=== PATIENT | female | born 1965 | race Caucasian/White ===

== ENCOUNTER 2016-04-09 09:58 | Day surgery (SDC) | payer BC ==
[2016-04-08 12:28] LABS: ALBUMIN 3.7 G/DL (3.5-5.0); ALKALINE PHOSPHATASE 110 U/L (45-117); BUN (BLOOD UREA NITROGEN) 8 MG/DL (6-23); CALCIUM, SERUM 8.5 MG/DL (8.5-10.4); CHLORIDE, SERUM 103 MMOL/L (96-112); CO2 (CARBON DIOXIDE) 27 MMOL/L (24-34); CREATININE 0.77 MG/DL (0.55-1.02); GFR AFRICAN AMERICAN 104 ML/MIN (>=60); GFR NON AFRICAN AMERICAN 90 ML/MIN (>=60); GLOBULIN 3.6 G/DL (2.5-4.1); GLUCOSE, SERUM 120 MG/DL (60-99); SGOT(AST) 14 U/L (5-40); SGPT(ALT) 24 U/L (5-65); SODIUM, SERUM 139 MMOL/L (135-148); TOTAL BILIRUBIN 0.4 MG/DL (0-1.2); TOTAL PROTEIN 7.3 G/DL (6.0-8.5)
[2016-04-08 12:30] LABS: POTASSIUM, SERUM 3.9 MMOL/L (3.5-5.3)
--- NOTE | ~2016-04-09 | OP ---
Record Of Operation [facility] [address] [place]. [address] NAME: MARIANA VILLAREAL : 65 STATUS : REG [facility]#: [id number] AGE: 50 ADM/REG DATE : 04/09/16 MR#: [id number] REPORT SERV DATE: 04/09/16 DICTATED BY: DAWSON PRADO DATE: 04/09/16 REPORT STATUS : Draft TRANSCRIBED BY: MODL DATE: 04/09/16 DATE OF PROCEDURE: 04/09/2016 PREOPERATIVE DIAGNOSES: 1. Cholelithiasis with chronic cholecystitis. 2. Hypertension. 3. Chronic pain. POSTOPERATIVE DIAGNOSES: 1. Cholelithiasis with chronic cholecystitis. 2. Hypertension. 3. Chronic pain. PROCEDURE: Laparoscopic cholecystectomy. ANESTHESIA: General. SURGEON: Dawson Prado M.D. MANAGER LATIN: [place]. COMPLICATIONS: None. DRAINS: None. ESTIMATED BLOOD LOSS: 20 mL. FINDINGS: 1. The patient was noted to have a thickened gallbladder wall consistent with chronic cholecystitis with cholelithiasis. 2. The cystic duct was normal size diameter with normal preoperative liver function studies and no evidence of any common bile duct dilatation clinically, therefore no cholangiogram was obtained. OPERATIVE TECHNIQUE: The patient was brought to the operating room and placed on the table in supine position. She had preoperative IV antibiotics. She had sequential hose in place. She voided prior to the procedure. She underwent general endotracheal anesthesia and was prepped and draped in sterile fashion and a time-out was completed. Local anesthesia was instilled to the periumbilical skin. A 15 blade knife was used to make incision through the base of the umbilicus. The skin and fascia were elevated. The Veress needle was inserted and a water drop test safely performed. A 15 mm of pneumoperitoneum was obtained. An 11 mm trocar was inserted through the umbilicus followed by the laparoscope. There was no evidence of Veress or trocar injury. She was then placed in reverse Trendelenburg and rolled to the left. An 11 mm subxiphoid and two 5 mm right upper quadrant trocars were placed under direct visualization. The gallbladder fundus was grasped and elevated over the liver edge. It was noted to be thickened consistent with chronic cholecystitis. The Record Of Operation [facility] [address] [place]. [address] NAME: MARIANA VILLAREAL : 65 STATUS : REG [facility] [place] PAT#: [id number] AGE: 50 ADM/REG DATE : 04/09/16 MR#: [id number] REPORT SERV DATE: 04/09/16 DICTATED BY: DAWSON PRADO DATE: 04/09/16 REPORT STATUS : Draft TRANSCRIBED BY: MODL DATE: 04/09/16 patient then had the infundibulum identified and retracted inferolaterally. The cystic duct gallbladder junction was identified on its lateral aspect and circumferentially dissected with blunt dissection until the cystic duct was seen circumferentially. Dissection more medial revealed the cystic artery and it was also bluntly dissected to its junction with the gallbladder. At this point, the cystic duct and cystic artery were clearly identified and clipped twice proximally and distally and divided between the clips. The gallbladder was removed from the fossa using electrocautery hook and extracted through the umbilicus. The laparoscope and trocar reinserted. Examination of the hepatic fossa noted to be hemostatic. The clips were noted to be intact without encroaching the common bile duct. There was no evidence of any bleeding, biliary spillage, or other visual abnormalities. At this point, all the instruments and trocars removed under direct visualization as the pneumoperitoneum was aspirated. The umbilical fascia was reapproximated using a [id number] Vicryl suture. Skin edges were reapproximated using absorbable subcuticular Monocryl sutures. Dermabond was applied. She was extubated and taken to the recovery room in stable condition. GABRIEL/ERIN Dawson Prado M.D. / [id number] CC: Mendel Foss M.D.
[~2016-04-09 09:58] MED LIST: ADVIL PO; ASAB PO; BEN25 PO; BROVANA15 MCG INH; CALTRA600D PO; DIL4TAB PO; DIOV160 PO; HALF81 PO; LORTAB 5 PO; MEP50 IM; METHOC750B PO; MSCONT15 PO; MULTIPLE VIT PO; MULTIVIT/MIN PO; NAP500 PO; NEUR100 PO; NEUR300 PO; NORCO1 TA1 PO; NORCO1 TA2 PO; NORV5 PO; PERCOCET1 TA4 PO; PR25 PO; PRILO PO; PRIN10 PO; PROMETRIUM PO; PROZAC40 MG PO; PULRESP.5 INH; SPIRIVA INH; SPIRIVA RESPIMAT INH; SUDAFED 24HR1 TAB PO; SYMBICORT 160/41 INH INH; ULTRAM50 PO; XOPENEX HFA INH; XOPENEX INH; ZOFRAN4 PO; ZYRTEC ALLGY10 MG PO
[2016-04-09 10:43] LABS: HEMATOCRIT 36.2 % (36.0-48.0); HEMOGLOBIN 11.9 g/dL (12.0-16.0)
== END 2016-04-09 18:47 | disposition home or self-care (01) ==
LOC: SDC 09:58
PROVIDERS: Surgery
PROC: 0FT44ZZ Resection of Gallbladder, Percutaneous Endoscopic Approach (ICD-10-PCS; principal; 2016-04-09 11:30)
DX: K80.10 Calculus of gallbladder with chronic cholecystitis without obstruction (principal); I10 Essential (primary) hypertension; G89.29 Other chronic pain; K21.9 Gastro-esophageal reflux disease without esophagitis; Z88.2 Allergy status to sulfonamides; Z88.5 Allergy status to narcotic agent; Z91.041 Radiographic dye allergy status; Z88.8 Allergy status to other drugs, medicaments and biological substances; Z79.51 Long term (current) use of inhaled steroids; J45.909 Unspecified asthma, uncomplicated; G57.93 Unspecified mononeuropathy of bilateral lower limbs; Z79.82 Long term (current) use of aspirin; Z79.899 Other long term (current) drug therapy; Z79.891 Long term (current) use of opiate analgesic
CPT/HCPCS: 80053; 84703; 85014; 85018; 88304; 93005; A9270-GY; J0690; J1170; J1885; J2250; J2405; J2710; J3010

== ENCOUNTER 2016-05-14 23:50 | Emergency (ER) | payer BC ==
[2016-05-14 23:33] LABS: BASOPHILS 0.3 %; BASOPHILS ABSOLUTE 0.02 10/3/uL (0.0-0.16); EOSINOPHILS 1.2 %; EOSINOPHILS ABSOLUTE 0.09 10/3/uL (0.0-0.53); HEMATOCRIT 36.4 % (36.0-48.0); HEMOGLOBIN 12.1 g/dL (12.0-16.0); IMMATURE GRANULOCYTES 0.3 %; IMMATURE GRANULOCYTES ABSOLUTE 0.02 10/3/uL (0.0-0.11); LYMPHOCYTES 15.7 %; MEAN CORPUS HGB CONC 33.2 g/dL (32.0-36.0); MEAN CORPUSCULAR VOLUME 90.1 fL (80-100); MEAN PLATELET VOLUME 9.5 fL (9.2-13.0); MONOCYTES 6.4 %; MONOCYTES ABSOLUTE 0.49 10/3/uL (0.21-1.20); NEUTROPHILS 76.1 %; NEUTROPHILS ABSOLUTE 5.81 10/3/uL (2.02-8.40); PLATELET COUNT 321 10/3/uL (150-400); RBC DISTRIBUTION WIDTH 14.6 % (12.0-16.0); RED CELL COUNT 4.04 10/6/uL (4.0-5.6)
[2016-05-14 23:40] LABS: PROTIME (NOT ORD) 13.1 SEC (12.0-14.5)
[2016-05-14 23:41] LABS: ER CBC TAT 0 Hrs 13 Mins; WHITE BLOOD CELLS 7.6 10/3/uL (4.5-10.5)
[2016-05-14 23:50] LABS: BUN (BLOOD UREA NITROGEN) 8 MG/DL (6-23); CHEST PAIN PROFILE TAT 0 Hrs 22 Mins; CHLORIDE, SERUM 105 MMOL/L (96-112); CO2 (CARBON DIOXIDE) 27 MMOL/L (24-34); CREATININE 0.98 MG/DL (0.55-1.02); GFR AFRICAN AMERICAN 78 ML/MIN (>=60); GFR NON AFRICAN AMERICAN 67 ML/MIN (>=60); GLUCOSE, SERUM 104 MG/DL (60-99); POTASSIUM, SERUM 3.8 MMOL/L (3.5-5.3); SODIUM, SERUM 141 MMOL/L (135-148); TROPONIN I <0.02 NG/ML (<0.05)
[2016-05-14 23:54] LABS: MANUAL DIFF NO %
== END 2016-05-15 04:18 | disposition home or self-care (01) ==
LOC: ER 23:50
PROVIDERS: Specialist
DX: J06.9 Acute upper respiratory infection, unspecified (principal); E86.0 Dehydration; I10 Essential (primary) hypertension; Z88.5 Allergy status to narcotic agent; Z88.2 Allergy status to sulfonamides; Z88.8 Allergy status to other drugs, medicaments and biological substances; Z79.82 Long term (current) use of aspirin; Z79.899 Other long term (current) drug therapy
CPT/HCPCS: 71020; 71275; 80048; 83735; 84484; 85025; 85610; 85730; 93005; 96374; 99285; J1200; Q9967